=== PATIENT | female | born 1960 | race Caucasian/White ===

== ENCOUNTER 2024-10-14 01:43 | Emergency (ER) | payer BC, SELFPAY ==
[2024-10-14 01:43] VITALS: BMI 26.3
--- NOTE | 2024-10-14 02:43 | EKG_ITS ---
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
[2024-10-14 02:48] VITALS: BP 154/96; PULSE 122; RESP 20; TEMP 37.2; O2SAT 94
--- NOTE | 2024-10-14 03:07 | PD.EDRME ---
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 Patient states he probably does have COPD as she smokes, but has never been diagnosed. Chief Complaint: Shortness of Breath/Dyspnea Vital signs: Vital Signs Temperature 99.0 F 10/14/24 02:48 Pulse Rate 122 H 10/14/24 02:48 Respiratory Rate 20 10/14/24 02:48 Blood Pressure 154/96 H 10/14/24 02:48 Pulse Oximetry (%) 94 L 10/14/24 02:48 Oxygen Delivery Method Room Air 10/14/24 02:48
[2024-10-14 03:32] LABS: Basophils % (Auto) 0 % (0-2.5); Eosinophils # (Auto) 0.3 Thou/mm3 (0.0-0.5); Eosinophils % (Auto) 2 % (0-10); Hematocrit 44.1 % (36.0-46.0); Hemoglobin 14.6 g/dL (12.0-16.0); Immature Granulocytes % (Auto) 0 % (0-0); Immature Granulocytes Auto 0.05 Thou/mm3 (0.00-0.00); Lymphocytes # (Auto) 1.8 Thou/mm3 (1.0-4.8); Lymphocytes % (Auto) 14 % (10-50); Mean Corpuscular HGB Conc 33.1 g/dl (31.0-37.0); Mean Corpuscular Volume 88 fL (80-100); Monocytes # (Auto) 0.8 Thou/mm3 (0.0-0.8); Monocytes % (Auto) 6 % (0-12); Neutrophils # (Auto) 10.3 Thou/mm3 (1.8-7.7); Neutrophils % (Auto) 77 % (37-80); Nucleated Red Blood Cell % 0 /100 WBC (0); Platelet Count 204 Thou/mm3 (140-440); RDW Standard Deviation 44.5 fL (36.4-46.3); Red Blood Count 5.03 Miln/mm3 (4.00-5.20); White Blood Count 13.3 Thou/mm3 (3.6-11.0)
[2024-10-14] MEDS: DEXAMETHASONE SOD PHOS INJ 10 MG/ML VIAL PO (03:36)
[2024-10-14 03:37] VITALS: BP 123/83; PULSE 123; RESP 20; O2SAT 97
[2024-10-14] MEDS: LEVALBUTEROL RT 1.25 MG/0.5 ML NEBU 5 MG INH (03:45)
[2024-10-14 03:46] VITALS: PULSE 120; RESP 20; O2SAT 99
[2024-10-14] MEDS: IPRATROPIUM RT 0.5 MG/ 2.5 ML NEBU 1 MG INH (03:46)
[2024-10-14] MEDS: SODIUM CHLORIDE RT SOL 0.9% 3 ML NEBU INH (03:46)
[2024-10-14 03:49] LABS: Alanine Aminotransferase 18 U/L (10-49); Albumin, Serum 4.9 gm/dL (3.4-4.8); Alkaline Phosphatase 108 U/L (46-116); Anion Gap 7 (7-16); Aspartate Amino Transferase 14 U/L (0-34); BUN/Creatinine Ratio 22 Ratio (12-20); Bilirubin,Total 0.3 mg/dL (0.3-1.2); Blood Urea Nitrogen 20 mg/dL (9-23); Calcium 9.8 mg/dL (8.3-10.6); Calcium (Corrected) 9.8 mg/dL (8.5-10.1); Carbon Dioxide 23.3 mMol/L (20.0-31.0); Chloride 107 mMol/L (98-107); Creatinine (Component) 0.9 mg/dL (0.6-1.3); Globulin 2.5 gm/dL (2.3-3.5); Glucose 122 mg/dL (74-106); Magnesium 2.2 mg/dL (1.6-2.6); Osmolality,Calculated 277 (275-295); Sodium 137 mMol/L (136-145); Total Protein 7.4 gm/dL (5.7-8.2); Troponin I < 0.002 ng/mL (0.0-0.045); eGFR > 60 See Note
[2024-10-14 03:50] LABS: B-Type Natriuretic Peptide < 20 pg/mL (0-100)
[2024-10-14] MEDS: predniSONE 20 MG TABLET 60 MG PO (03:51)
--- NOTE | 2024-10-14 03:53 | PC.NURSE ---
Pt declined tylenol with codeine because she's driving
[2024-10-14] MEDS: OSELTAMIVIR 75 MG CAPSULE PO (04:03)
--- NOTE | 2024-10-14 04:11 | EDNOTE_ITS ---
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 Patient states he probably does have COPD as she smokes, but has never been diagnosed. This section includes all my notes and documentations, including HPI, PE, and ED course. Kin Perez MD HPI: 64-year-old female here with several days of worsening cough, productive cough, purulent sputum, and dyspnea. With high fever and chills and bodyaches and malaise. And chest tightness with coughing. No other complaints. ROS: All negative except as documented in HPI. Physical Exam: General: Alert and oriented. Hacking cough noted. Eyes: Conjunctivae and lids clear. ENT: No nasal congestion. Neck: Supple. Heart: RRR. Lungs: No respiratory distress. Moderately decreased air movement with diffuse rhonchi. Abdomen: Soft and nontender. Back: No CVA tenderness. Skin: Warm and dry. Neuro: Alert and oriented X 3. I reviewed all diagnostic test results. My interpretation of the EKG is sinus tachycardia with nonspecific ST?T changes. Blood tests unremarkable, including no troponin. Influenza positive. At this point, diagnoses include influenza with severe bronchospasm. Treatment here included oral steroids and neb treatments and ibuprofen and Tamiflu. Significant improvement noted. Recommended a trial of outpatient treatment. Based on my best medical judgment, made decision no further evaluation or treatment indicated at this time. Patient understands and agrees to the discharge instructions customized and printed, see below. Discharge instructions from Dr. Perez: --No physical exertion for 3 days to help rest the lungs. ?-No smoking or exposure to smoking or pets or dust or cold or humidity. --Tamiflu to kill the germs causing the influenza. --Prednisone to help decrease the swelling in the airways. --Albuterol 2 puffs every 4-6 hours for 3 days to help keep the airways open. Then as needed for cough or shortness of breath. --Ibuprofen 800 mg every 6-8 hours today and tomorrow to decrease inflammation then as needed. --Tylenol with codeine for severe cough for severe pain or fever. --For good hydration, increase oral fluid and maintain clear urine. If dark or yellow, increase oral fluid. Your body needs extra when you are sick. --See a private doctor next week for recheck. --Seek immediate medical care with worsening or with any concerns. Kin Perez MD Related Data Home Medications ?Medication ?Instructions ?Recorded ?Confirmed atorvastatin 80 mg tablet 80 mg PO QDAY 02/17/22 12/11/22 clopidogrel 75 mg tablet 75 mg PO QDAY 02/17/22 12/11/22 duloxetine 30 mg capsule,delayed 30 mg PO BID 12/11/22 12/11/22 release gabapentin 300 mg capsule 300 mg PO BID 12/11/22 12/11/22 Previous Rx's ?Medication ?Instructions ?Recorded acetaminophen 300 mg-codeine 30 mg 2 tab PO TID PRN pain #20 tabs 10/14/24 tablet albuterol sulfate 90 mcg/actuation 2 inh inhalation QID PRN shortness 10/14/24 aerosol inhaler of breath or wheezing #8.5 grams ibuprofen 800 mg tablet 800 mg PO Q8H PRN pain #30 tabs 10/14/24 oseltamivir 75 mg capsule (Tamiflu) 75 mg PO BID 5 days #10 caps 10/14/24 prednisone 20 mg tablet 40 mg PO BID 3 days #12 tabs 10/14/24 Allergies Allergy/AdvReac Type Severity Reaction Status Date / Time hydromorphone [From Dilaudid] Allergy Vomiting Verified 10/24/23 08:19 morphine Allergy Migraine Verified 10/24/23 08:19 Course Quality Measures none Orders Category Date Time Status Bedside COVID-19 Antigen Test NOW Care 10/14/24 03:06 Completed Bedside Influenza A&B Antigen Test NOW Care 10/14/24 03:06 Completed EKG (ED ONLY) *Do not use* NOW Care 10/14/24 02:43 Completed EKG (ED Only) Stat Exams 10/14/24 02:43 Draft B-Type Natriuretic Peptide Stat Lab 10/14/24 03:23 Completed CBC Stat Lab 10/14/24 03:23 Completed Comprehensive Metabolic Panel Stat Lab 10/14/24 03:23 Completed Magnesium Stat Lab 10/14/24 03:23 Completed Troponin I Stat Lab 10/14/24 03:23 Completed ACETAMINOPHEN w/COD 300-30 [Tylenol w/Cod #3] Med 10/14/24 03:41 Discontinued 2 tab PO X1 ONE Dexamethasone Inj [Decadron Inj] Med 10/14/24 03:06 Discontinued 10 mg PO X1 ONE Ipratropium [place] Rt Valeri [Atrovent Rt Valeri] Med 10/14/24 03:06 Discontinued 1 mg INH X1 ONE Levalbuterol Rt [Xopenex Rt Valeri] Med 10/14/24 03:06 Discontinued 5 mg INH X1 ONE Oseltamivir [Tamiflu] Med 10/14/24 03:58 Discontinued 75 mg PO X1 ONE Sodium Chloride Rt Valeri 0.9% [NS Rt Valeri 0.9%] Med 10/14/24 03:06 Active 3 ml INH PRN PRN predniSONE Med 10/14/24 03:41 Discontinued 60 mg PO X1 ONE Vital Signs Vital signs: Vital Signs Temperature 99.0 F 10/14/24 02:48 Pulse Rate 122 H 10/14/24 02:48 Respiratory Rate 20 10/14/24 02:48 Blood Pressure 154/96 H 10/14/24 02:48 Pulse Oximetry (%) 94 L 10/14/24 02:48 Oxygen Delivery Method Room Air 10/14/24 02:48 Shortness of Breath / Dyspnea Patient data External records reviewed:: [facility] previous records Clinical information provided by:: patient Social determinants that could affect healthcare access:: none Patient has the following chronic illnesses:: See chart How is presenting disease/condition affected by chronic disease/condition?: exacerbated by Evaluation data The following diagnostics were reviewed and interpreted by me:: lab results, radiology exam(s) and EKG tracing(s) (Sinus tachycardia with nonspecific ST-T changes) Lab and/or radiology exams considered but not ordered:: None Interpretation Summary: Influenza with severe bronchospasm Medications / Prescriptions Medications or Prescriptions considered but not ordered:: None Medication administrations:: Medication Administration History Sodium Chloride (Sodium Chloride Rt Valeri 0.9% 3 Ml Nebu) 3 ml INH PRN PRN PRN Reason: SOLN Stop: 11/13/24 03:05 Last Admin: 10/14/24 03:46 Dose: 3 ml Documented By: CHERYL Discontinued Medications Acetaminophen/Codeine Phosphate (Acetaminophen W/Cod 300-30 Tablet) 2 tab PO X1 ONE Stop: 10/14/24 03:42 Last Admin: 10/14/24 04:03 Dose: Not Given Documented By: ASIM Non-Admin Reason: Patient Refused Dexamethasone Sodium Phosphate (Dexamethasone Sod Phos Inj 10 Mg/Ml Vial) 10 mg PO X1 ONE Stop: 10/14/24 03:07 Last Admin: 10/14/24 03:36 Dose: 10 mg Documented By: NICOLA Comments: PO Ipratropium [place] (Ipratropium Rt 0.5 Mg/ 2.5 Ml Nebu) 1 mg INH X1 ONE Stop: 10/14/24 03:07 Last Admin: 10/14/24 03:46 Dose: 1 mg Documented By: CHERYL Levalbuterol HCl (Levalbuterol Rt 1.25 Mg/0.5 Ml Nebu) 5 mg INH X1 ONE Stop: 10/14/24 03:07 Last Admin: 10/14/24 03:45 Dose: 5 mg Documented By: CHERYL Oseltamivir Phosphate (Oseltamivir 75 Mg Capsule) 75 mg PO X1 ONE Stop: 10/14/24 03:59 Last Admin: 10/14/24 04:03 Dose: 75 mg Documented By: ASIM Prednisone (Prednisone 20 Mg Tablet) 60 mg PO X1 ONE Stop: 10/14/24 03:42 Last Admin: 10/14/24 03:51 Dose: 60 mg Documented By: NICOLA Steroids and neb treatments and Tamiflu and ibuprofen Consultations Consultation(s) initiated? (list below): No Diagnosis Shortness of Breath Differential Diagnosis: acute exacerbation of chronic obstructive airways disease, congestive heart failure, community acquired pneumonia, asthma with exacerbation and other (Influenza) Most likely diagnosis given after review of the tests above:: Influenza with severe bronchospasm Admission Indicated Admission indicated?: not indicated Explain why admission is indicated or not indicated:: Admission criteria not met Admission Request Was there a request for admission?: No Disposition Plan Disposition Plan: Discharge Discharge Attestation Discharge Attestation: The patient and all family members were given an opportunity to ask questions and understood the discharge instructions. Discharge instructions specifically effects, indications for sooner follow up or return to the emergency department, and the expected course of current diagnosis. Patient condition: Stable Discharge Plan Plan Patient Disposition: HOME (Self Care) Prescriptions/Referrals Prescriptions/Med Rec: New acetaminophen-codeine 300-30 mg tablet 2 tab PO TID MDD 6 PRN (Reason: pain) Qty: 20 0RF albuterol sulfate 90 mcg/actuation HFA aerosol inhaler 2 inh inhalation QID PRN (Reason: shortness of breath or wheezing) Qty: 8.5 0RF prednisone 20 mg tablet 40 mg PO BID 3 Days Qty: 12 0RF Taper: Prednisone Taper 20 mg DAILY for 2 Days and 0 Hour 10 mg DAILY for 2 Days and 0 Hour 5 mg DAILY for 7 Days and 0 Hour oseltamivir [Tamiflu] 75 mg capsule 75 mg PO BID 5 Days Qty: 10 0RF ibuprofen 800 mg tablet 800 mg PO Q8H PRN (Reason: pain) Qty: 30 0RF No Action atorvastatin 80 mg tablet 80 mg PO QDAY Patient Comments: TAKE 1 TABLET BY MOUTH EVERY DAY clopidogrel 75 mg tablet 75 mg PO QDAY Patient Comments: TAKE 1 TABLET BY MOUTH EVERY DAY duloxetine 30 mg capsule,delayed release(DR/EC) 30 mg PO BID gabapentin 300 mg Capsule 300 mg PO BID Problem List Clinical Impression: Influenza Patient/Caregiver Discharge Instructions Discharge Activity: activity as tolerated Education Materials: ED Influenza (Adult) Additional Instructions: Discharge instructions from Dr. Perez: --No physical exertion for 3 days to help rest the lungs. ?-No smoking or exposure to smoking or pets or dust or cold or humidity. --Tamiflu to kill the germs causing the influenza. --Prednisone to help decrease the swelling in the airways. --Albuterol 2 puffs every 4-6 hours for 3 days to help keep the airways open. Then as needed for cough or shortness of breath. --Ibuprofen 800 mg every 6-8 hours today and tomorrow to decrease inflammation then as needed. --Tylenol with codeine for severe cough for severe pain or fever. --For good hydration, increase oral fluid and maintain clear urine. If dark or yellow, increase oral fluid. Your body needs extra when you are sick. --See a private doctor next week for recheck. --Seek immediate medical care with worsening or with any concerns. Print Language: Kazakh Stand Alone Forms: [employer] Info., Patient Portal Info Letter
[2024-10-14 04:24] VITALS: BP 110/73; PULSE 117; RESP 18; TEMP 36.9; O2SAT 99
[2024-10-14 05:06] VITALS: BP 114/76; PULSE 126; RESP 15; TEMP 36.9; O2SAT 96
== END 2024-10-14 05:06 | disposition home or self-care (01) ==
LOC: SERX 05:26
PROVIDERS: Physician Assistant; Emergency Provider Emergency Medicine
DX: J11.1 Influenza due to unidentified influenza virus with other respiratory manifestations (principal); I10 Essential (primary) hypertension; I25.10 Atherosclerotic heart disease of native coronary artery without angina pectoris; K21.9 Gastro-esophageal reflux disease without esophagitis
CPT/HCPCS: 36415; 80053; 83735; 83880; 84484; 85025; 87400; 87811; 93005; 94644; 99283; J1100; J7512; A9270

== ENCOUNTER → 2024-11-22 | Outpatient (CLI) | payer BC, SELFPAY ==
[2024-11-22 12:57] LABS: Basophils % (Auto) 0 % (0-2.5); Eosinophils # (Auto) 0.3 Thou/mm3 (0.0-0.5); Eosinophils % (Auto) 3 % (0-10); Hematocrit 43.8 % (36.0-46.0); Hemoglobin 14.7 g/dL (12.0-16.0); Immature Granulocytes % (Auto) 0 % (0-0); Immature Granulocytes Auto 0.04 Thou/mm3 (0.00-0.00); Lymphocytes # (Auto) 2.2 Thou/mm3 (1.0-4.8); Lymphocytes % (Auto) 23 % (10-50); Mean Corpuscular HGB Conc 33.6 g/dl (31.0-37.0); Mean Corpuscular Hemoglobin 29.1 pg (25.0-35.0); Mean Corpuscular Volume 87 fL (80-100); Monocytes # (Auto) 0.7 Thou/mm3 (0.0-0.8); Monocytes % (Auto) 7 % (0-12); Neutrophils # (Auto) 6.4 Thou/mm3 (1.8-7.7); Neutrophils % (Auto) 67 % (37-80); Nucleated Red Blood Cell % 0 /100 WBC (0); Platelet Count 236 Thou/mm3 (140-440); RDW Standard Deviation 45.1 fL (36.4-46.3); Red Blood Count 5.05 Miln/mm3 (4.00-5.20); White Blood Count 9.6 Thou/mm3 (3.6-11.0)
[2024-11-22 13:06] LABS: Glucose Estimated Average 114 mg/dL (80-131); Hemoglobin A1C 5.6 % Hgb (4.8-6.0)
[2024-11-22 13:26] LABS: Alanine Aminotransferase 13 U/L (10-49); Albumin, Serum 4.5 gm/dL (3.4-4.8); Alkaline Phosphatase 105 U/L (46-116); Anion Gap 6 (7-16); Aspartate Amino Transferase 13 U/L (0-34); BUN/Creatinine Ratio 28 Ratio (12-20); Bilirubin,Total 0.4 mg/dL (0.3-1.2); Blood Urea Nitrogen 22 mg/dL (9-23); Calcium 9.4 mg/dL (8.3-10.6); Calcium (Corrected) 9.4 mg/dL (8.5-10.1); Cardiac Risk Estimate 5.5 RATIO (3.7-5.6); Chloride 107 mMol/L (98-107); Cholesterol 249 mg/dL (132-200); Creatinine (Component) 0.8 mg/dL (0.6-1.3); Globulin 2.2 gm/dL (2.3-3.5); Glucose 93 mg/dL (74-106); HDL Cholesterol 45 mg/dL (40-60); LDL Cholesterol,Calculated 164 mg/dL (0-130); Osmolality,Calculated 284 (275-295); Potassium 4.9 mMol/L (3.4-5.1); Sodium 141 mMol/L (136-145); Total Protein 6.7 gm/dL (5.7-8.2); Triglycerides 199 mg/dL (30-150); eGFR > 60 See Note
[2024-11-22 13:29] LABS: Collection Type, Urine Clean Catch
[2024-11-22 13:46] LABS: Free T4 (Free Thyroxine) 0.97 ng/dL (0.89-1.76)
[2024-11-22 14:29] LABS: Bacteria,Urine Rare; Bilirubin,Urine Negative (Negative); Blood,Urine Negative (Negative); Clarity,Urine Clear (Clear/Hazy); Color,Urine Lt-Yellow (Lt Yel-Yel); Culture Indicated,Urine Not Indicated; Glucose, Urine Negative (Negative); Ketones,Urine Negative (Negative); Leukocyte Esterase,Urine Negative (Negative); Nitrite,Urine Negative (Negative); Protein,Urine Negative (Neg - Trace); RBC,Urine 2 /hpf (0-3); Specific Gravity,Urine 1.024 (1.001-1.035); Squamous Epithelial Cell,Urine 1 /hpf (0-5); Urobilinogen,Urine Negative mg/dL (0.0-1.0); WBC,Urine < 1 /hpf (0-5)
[2024-11-22 14:42] LABS: Vitamin D 25 Hydroxy Total 25.3 ng/mL (7.3-40.2)
== END | disposition home or self-care (01) ==
LOC: COPL 12:07
PROVIDERS: PCP Registered Nurse; Referring Provider Registered Nurse; Visit Provider Registered Nurse
DX: Z00.00 Encounter for general adult medical examination without abnormal findings (principal); E04.1 Nontoxic single thyroid nodule; E78.5 Hyperlipidemia, unspecified
CPT/HCPCS: 36415; 80053; 80061; 81001; 82306; 83036; 84439; 84443; 85025

== ENCOUNTER → 2025-04-22 | Outpatient (CLI) | payer BC, SELFPAY ==
--- NOTE | 2025-04-22 11:00 | XR_ITS ---
Examination: MRI lumbar spine without contrast Date and time of exam: April 22, 2025, 11:42 AM INDICATIONS: Low back pain radiating to the right leg numbness in the right side 3 months Technique: Multiple MRI axial and sagittal sections lumbar spine. Sagittal T2-weighted images, TR 3500, TE 118 T1 weighted transverse sections, TR 688 T8.5, T2-weighted sagittal sections T1 weighted sagittal sections TR 621, TE 30 T2 axial sections, TR 4, 190, TE 84. Findings: Adequate alignment lumbar vertebral bodies. No lumbar fracture. Advanced disc narrowing L5-S1. L5-S1 4 mm central lumbar disc bulge contiguous with the right S1 nerve root L4-L5 4 mm Central lumbar disc bulge contiguous with the right and left L5 nerve roots L3-L4 no disc protrusion L2-L3 no disc protrusion 1 L2 no disc protrusion IMPRESSION: Advanced degenerative disc disease L5-S1 L5-S1 4 mm central right disc bulge contiguous with the right S1 nerve root L4-L5 4 mm central lumbar disc bulge contiguous with the right and left L5 nerve roots
== END | disposition home or self-care (01) ==
LOC: SMRI 10:28
PROVIDERS: PCP Registered Nurse; Referring Provider Registered Nurse; Visit Provider Registered Nurse
DX: M51.370 Other intervertebral disc degeneration, lumbosacral region with discogenic back pain only (principal); M51.360 Other intervertebral disc degeneration, lumbar region with discogenic back pain only
CPT/HCPCS: 72148

== ENCOUNTER → 2025-10-02 | Outpatient (CLI) | payer BC, SELFPAY ==
--- NOTE | 2025-10-02 09:00 | XR_ITS ---
Examination: Screening digital mammography, bilateral Computer aided detection 3-D breast Tomosynthesis, bilateral Date and time of exam: October 02, 2025, 0853 hours, compared to mammograms dating to January 09, 2020 Indication: Screening Technique: Nonmagnified MLO, CC views of the breasts to been obtained, reconstructed from 3-D Tomosynthesis images. R2 computer aided detection program utilized for evaluation of suspicious masses and/or abnormal calcifications. 3-D Tomosynthesis images obtained. Findings: Scattered areas of fibroglandular density Benign calcifications. No interval suspicious masses Impression: BI-RADS category II: Benign Findings. Recommend 1 year follow-up mammogram.
== END | disposition home or self-care (01) ==
PROVIDERS: PCP Registered Nurse; Referring Provider Registered Nurse; Visit Provider Registered Nurse
DX: Z12.31 Encounter for screening mammogram for malignant neoplasm of breast (principal); R92.323 Mammographic fibroglandular density, bilateral breasts; R92.1 Mammographic calcification found on diagnostic imaging of breast
CPT/HCPCS: 77063; 77067